=== PATIENT | female | born 1980 | race Caucasian/White ===

== ENCOUNTER 2018-11-29 14:32 | Outpatient (CLI) | payer OTHER ==
--- NOTE | 2018-11-29 15:45 | ULT ---
TRANSABDOMINAL AND TRANSVAGINAL PELVIC ULTRASOUND WITH CLAY SCALE, COLOR FLOW AND SPECTRAL DOPPLER IM AGIN11/29/18 HISTORY: Left lower quadrant pain. FINDINGS: The uterus measures 7.9 x 3.5 x 4.7 cm. The endometrium measures 6 mm in thickness. There is a hypoec hoic area adjacent to the endometrium in the uterus measuring 1.1 x 1.3 x 1.3 cm likely fibroid. No e ndometrial fluid is seen. The right ovary measures 6 x 3 x 3.5 cm and the left ovary measures 2.3 x 1.5 x 2.6 cm. Flow is demon strated to both ovaries. There are cysts in the right ovary measuring 3.3 x 2.3 x 2.6 cm and 1.9 x 2. 3 x 2.3 cm. No left adnexal mass is seen. There is no free fluid in the cul-de-sac. IMPRESSION: 1. Probable 1.3 cm uterine fibroid. 2. Right ovarian cysts, the largest measuring 3.3 cm. POS: C
== END 2018-11-29 14:33 | disposition home or self-care (01) ==
LOC: ULT 14:32
PROVIDERS: ATTEND Obstetrics & Gynecology
DX: R10.2 Pelvic and perineal pain (principal); N83.201 Unspecified ovarian cyst, right side
CPT/HCPCS: 76856

== ENCOUNTER 2019-04-10 07:51 | Day surgery (SDC) | payer OTHER ==
[2019-04-09 11:46] VITALS: BMI 23.8
[2019-04-09 12:22] LABS: Hemoglobin 14.1 g/dL (12.0-16.0); Mean Corpuscular HGB CONC 33.5 g/dL (32.0-36.0); Mean Corpuscular Hemoglobin 31.1 pg (27.0-31.0); Mean Corpuscular Volume 92.8 fL (78.0-98.0); Mean Platelet Volume 8.5 fL (7.4-10.4); Platelet Count 175 thou/uL (130-400); Red Blood Cell (RBC) Count 4.55 mill/uL (4.20-5.40)
[2019-04-09 12:43] LABS: BHCG - Serum Negative (NEGATIVE); Pregs Control Background? CLEAR/WHITE (CLR/WHITE); Pregs Control Bar Appear? YES (CONTROL BAR)
--- NOTE | 2019-04-09 22:53 | HP ---
DATE OF PLANNED SURGERY: 04/10/2019. HISTORY OF PRESENT ILLNESS: Ms. Mena is a 38-year-old white female, G0, who has been having abnormal uterine bleeding. She has bouts of heavy flow and prolonged intermenstrual bleeding. On evaluation, she was noted to have a 1.3 cm submucosal fibroid seen on ultrasound. She is also desiring in the fall or winter of 2018. Describes heavy flow with breakthrough bleeding in between her cycles. She also has severe dysmenorrhea. 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 She does use ibuprofen and Tylenol for it, and she is up to date with her Pap smear screening. PAST MEDICAL HISTORY: For some low back pain. She has some allergic conjunctivae. ALLERGIES: SHE HAS NO KNOWN DRUG ALLERGIES. PAST SURGICAL HISTORY: No prior surgery. CURRENT MEDICATIONS: 1. Flexeril 5 mg every 8 hours as needed. 2. Melatonin 10 mg at bedtime for sleep. 3. Pazeo eye drops 0.7% eyedrops as directed. 4. Multivitamin. FAMILY HISTORY: Paternal grandfather with heart failure and heart disease. Maternal grandmother with rheumatoid arthritis. Mother with migraine and thyroid disorder and hyperlipidemia. Brother with hyperlipidemia. Sister with thyroid disorder. Grandmothers with diabetes, heart failure, and obesity. SOCIAL HISTORY: She is a nonsmoker. No excessive alcohol use or drug use. PHYSICAL EXAMINATION: VITAL SIGNS: Her blood pressure is 100/58, height 5 feet 7 inches, weight 154 with a BMI of 24.1, pulse 69, respiratory rate 18. HEENT: Within normal limits. CHEST: Clear to auscultation. HEART: Regular rate and rhythm. S1 and S2 heart sounds. No murmurs, rubs, or gallops. ABDOMEN: Soft, nontender, and nondistended with no palpable masses. PELVIC: Vulva and vagina had no masses. No lesions were seen. Bladder was nontender. Urethra was normal in appearance. The vagina had no cystocele or rectocele or lesion seen. Cervix had no cervical motion tenderness. Uterus was small and normal-sized, mobile. There was posterior cul-de-sac tenderness on palpation with some nodularity appreciated on exam suggestive of endometriosis. Adnexa were nontender with no masses. ASSESSMENT: This is a 38-year-old white female, G0, with menometrorrhagia and confirmed 1.3 cm submucosal uterine fibroid along with dysmenorrhea and dyspareunia with findings on physical exam suggestive of endometriosis. PLAN: Plan is to proceed with a diagnostic hysteroscopy with hysteroscopic myomectomy resection followed by robotic diagnostic laparoscopy with excision of endometriotic implant if encountered or in fulguration. We would also proceed with chromotubation of the fallopian tubes at that time to confirm tubal patency. Risks and benefits of procedure were discussed in detail. She is set for surgery on 04/10/2019. Job ID: [id number]
[2019-04-10] MEDS ORDERED: Gabapentin 300 MG CAP ONE (08:19)
[2019-04-10] MEDS ORDERED: CeleCOXIB 100 MG CAP ONE (08:19)
[2019-04-10] MEDS ORDERED: Famotidine/PF 20 mg/2ml Vial ONE (08:19)
[2019-04-10] MEDS ORDERED: ceFAZolin Sodium (SDC) 2 GM/100 ML BAG ONE (08:46)
[2019-04-10] MEDS ORDERED: Bupivacaine HCl 0.5%/Epinephrine 1:200,000/PF 30 ml Vial ONE (09:40)
[2019-04-10] MEDS ORDERED: Fentanyl 250 MCG/5 ML VIAL ONE (10:10)
[2019-04-10] MEDS ORDERED: Midazolam HCl 2 mg/2 ml Vial ONE (10:16)
[2019-04-10] MEDS ORDERED: Scopolamine 1.5 mg/72 hour Patch ONE (10:16)
[2019-04-10] MEDS ORDERED: Fentanyl 100 MCG/2 ML VIAL ONE ×2 (13:07→13:47)
[2019-04-10] MEDS ORDERED: HYDROcodone/Acetaminophen 5/325 mg Tablet ONE (16:09)
--- NOTE | 2019-04-10 19:58 | OP ---
DATE OF PROCEDURE: 04/10/2019 PREOPERATIVE DIAGNOSES: 1. A 38-year-old white female, G0 with menometrorrhagia and suspected submucosal fibroid. 2. Severe dysmenorrhea and pelvic pain with suspicion for endometriosis. POSTOPERATIVE DIAGNOSES: 1. A 38-year-old white female, G0 with menometrorrhagia and suspected submucosal fibroid. 2. Severe dysmenorrhea and pelvic pain with suspicion for endometriosis with palpable endometrial polyp. In addition, pelvic endometriosis confirmed. PROCEDURES PERFORMED: 1. Diagnostic hysteroscopy with shavings of endometrial polypoid lesion. 2. Robotic diagnostic laparoscopy with excision and ablation of endometriotic implants followed by chromotubation. ASSISTANCE SURGEON: Marah Case PA-C. ANESTHESIA: General endotracheal. ESTIMATED BLOOD LOSS: Less than 10 mL. COMPLICATIONS: None. COUNTS: Correct x2. ANTIBIOTICS: 2 g Ancef, on-call to OR. FINDINGS: 1. Endometrial cavity showed somewhat of a fleshy polypoid-looking lesion in the endometrial cavity, status post excision. Otherwise, the cavity had smooth findings, normal fundus and cornual areas. Fluid deficit with procedure was 150 mL of normal saline. 2. Laparoscopy. The patient had obliteration of the posterior cul-de-sac from old endometriotic disease. 3. Bilateral ovaries and fallopian tubes were normal in appearance with free flow of methylene blue during chromotubation. 4. Vesicouterine peritoneal powder-burn endometriotic implants noted on the anterior uterus. Otherwise, pelvic sidewalls were with no active endometriosis disease noted. 5. Bilateral ureteral peristalsis noted with normal-appearing appendix confirmed. DISPOSITION: Recovery room, stable. DESCRIPTION OF PROCEDURE: The patient previously received informed consent in regard to surgery. She was taken back to the operating room, where she received a general endotracheal anesthetic agent without complications. She was placed in the dorsal lithotomy position with the use of Yovani stirrups and prepped and draped in usual sterile fashion. Shah catheter was placed at this time. A side-arm speculum was placed in the vagina. The anterior lip of the cervix was grasped with single-tooth tenaculum at the posterior cervix. On initial sound, there was a significant resistance approximately 4 cm into the cervical canal. The speculum was repositioned. The patient's legs were placed in a higher dorsal lithotomy position. I then continued to use a small size 10 cervical dilator. After numerous attempts, I was able to then pass the sound through up to the fundus, and the patient was noted to be very anteverted with some fixation of the uterus. This was remedied more by placing in a more Trendelenburg position and then raising the patient's legs back up. We finally able to dilate the cervix to a size 16 Arias dilator and then passed a 5-mm TruClear diagnostic scope into the uterine cavity, and this was remedied also with assistants by them removing the speculum to allow for more of a downward direction of the scope to curve up the anteflexion of the uterus. The inside of the uterine cavity was visualized, and photodocumentation was taken. We then placed the 5-mm TruClear shaving device inside the cavity, and shavings of the endometrial cavity were carried out, and this was sent for pathology. We removed what appeared to be a kind of a polypoid-looking lesion. Otherwise, the cavity was normal in appearance. We then removed the hysteroscope. Fluid deficit was 150 mL of normal saline. We then placed a diagnostic VCare in the uterine cavity. Attention was then turned to the abdomen, where perspective trocar sites were then infiltrated with 0.5% Marcaine with epinephrine. A 12-mm supraumbilical incision was made, and a Veress needle was entered in the peritoneal cavity. The patient's abdomen was insufflated with the patient's pressure of 15, approximately 4.5 L of carbon dioxide gas. A 12-mm trocar was then placed through the incision site, and then the laparoscope was introduced through the trocar sleeve confirming proper entry. The patient was placed in a more Trendelenburg position, and bilateral lower quadrant 8-mm trocars were placed under laparoscopic guidance along with an 11-mm right upper quadrant port. The pelvis was inspected being elevated with the VCare uterine manipulator. The previously mentioned findings were noted. The Endo Benton, monopolar scissors, and the bipolar fenestrated cautery instruments were placed while I had proceeded to carry out the surgery at the operative console after docking of the robot. My assignment desk assistant elevated the left adnexal structures, and some filmy adhesions from the left sigmoid colon were taken down with monopolar scissors freeing the left adnexal structures from this. The left ovary and tube were inspected, and they were normal in appearance. Again, the right tube and ovary were photodocumented, and they were also normal in appearance. The courses of the ureters bilaterally were visualized with free flow with no evidence of pelvic endometriosis on either ureter or pelvic sidewall noted. There was a peritoneal window on the left lower posterior cul-de-sac side near the uterosacral ligament, and this window was incised in the peritoneum with the monopolar scissors. The rectum was fixed to the posterior cul-de-sac right up against the posterior lower uterine segment and the cervix. I was able to get a tissue plane through this area and dissected free to the left side of the rectum from this and freeing up the left uterosacral ligament. We attempted to do some freeing up of this on the right side. Again, there were very tense adhesions, and some of the filmy adhesions were taken down with some minimal freeing up on the right side of the rectum to the lower uterine segment, but we did not feel that we needed to progress any further due to concern for risk of possible rectal injury if further dissection was carried out. The right ureter was free flowing away from this area. There were also then some vesicouterine peritoneal powder-burn lesions rolled up against the anterior uterus. This area was incised, and some of these areas of peritoneal implants were excised and sent for final pathologic evaluation. The other areas were cauterized. Incised some of the peritoneum here and freed up the uterus more anteriorly increasing its mobility. The pelvis was irrigated and suctioned. Hemostasis was confirmed. We then shot the chromotubation with the methylene blue, and free spill from both fallopian tubes was visualized and photodocumented. Once this had been completed, pelvis was irrigated and suctioned. Hemostasis was confirmed. The robot was undocked. Trocar sleeves were removed. A deep stitch of 0 Vicryl was placed in a [id number] stitch fashion in the umbilical fascial defect. The rest of the trocar sites were closed with 4-0 Monocryl and Dermabond. The [employer] manipulator was removed, and hemostasis was confirmed. The patient was then awakened from anesthesia and transferred to recovery room in stable condition. Job ID: [id number]
== END 2019-04-10 20:45 | disposition home or self-care (01) ==
LOC: SDC 07:51
PROVIDERS: ATTEND Obstetrics & Gynecology
PROC: 0DBW0ZX Excision of Peritoneum, Open Approach, Diagnostic (ICD-10-PCS; principal; 2019-04-10)
PROC: 0U5B8ZZ Destruction of Endometrium, Via Natural or Artificial Opening Endoscopic (ICD-10-PCS; 2019-04-10)
DX: N80.3 Endometriosis of pelvic peritoneum (principal); N92.1 Excessive and frequent menstruation with irregular cycle; D26.1 Other benign neoplasm of corpus uteri; N94.6 Dysmenorrhea, unspecified; H10.13 Acute atopic conjunctivitis, bilateral; Z79.899 Other long term (current) drug therapy
CPT/HCPCS: 36415; 84703; 85027; 86850; 86900; 86901; 88305; J0131; J0670; J0690; J2250; J3010; Q9968; S0028

== ENCOUNTER 2021-01-08 07:02 | Outpatient (CLI) | payer OTHER | END 2021-01-08 07:03 | disposition home or self-care (01) | LOC: BICULT 07:02 | PROVIDERS: ATTEND Internal Medicine Gastroenterology | DX: K90.0 Celiac disease (principal); R10.9 Unspecified abdominal pain; R07.89 Other chest pain; R11.0 Nausea | CPT/HCPCS: 76705 ==

== ENCOUNTER 2021-06-22 12:29 | Outpatient (CLI) | payer OTHER | END 2021-06-22 12:30 | disposition home or self-care (01) | LOC: NM 12:29 | PROVIDERS: ATTEND Internal Medicine Gastroenterology | DX: R10.13 Epigastric pain (principal) | CPT/HCPCS: 78227; A9537 ==

== ENCOUNTER 2021-06-25 10:30 | Outpatient (CLI) | payer OTHER | END 2021-06-25 10:31 | disposition home or self-care (01) | LOC: SCSRAD 10:30 | PROVIDERS: ATTEND Chiropractor | DX: M54.50 Low back pain, unspecified (principal); M47.817 Spondylosis without myelopathy or radiculopathy, lumbosacral region | CPT/HCPCS: 72100 ==

== ENCOUNTER 2021-10-05 11:05 | Outpatient (CLI) | payer BC | END 2021-10-05 11:06 | disposition home or self-care (01) | LOC: MRI 11:05 | PROVIDERS: ATTEND Internal Medicine | DX: M54.50 Low back pain, unspecified (principal); M48.07 Spinal stenosis, lumbosacral region; M47.817 Spondylosis without myelopathy or radiculopathy, lumbosacral region; M51.27 Other intervertebral disc displacement, lumbosacral region; M51.87 Other intervertebral disc disorders, lumbosacral region | CPT/HCPCS: 72148 ==